=== PATIENT | female | born 1995 | race Two or more races ===

== ENCOUNTER 2017-09-16 11:49 | Emergency (ER) | payer OTHER ==
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
[2017-09-16 12:36] LABS: APPEARANCE,URINE CLOUDY; BILIRUBIN,URINE NEGATIVE (NEGATIVE); GLUCOSE, URINE NEGATIVE (NEGATIVE); KETONES,URINE NEGATIVE (NEGATIVE); LEUKOCYTE ESTERASE,URINE TRACE (NEGATIVE); NITRITE,URINE NEGATIVE (NEGATIVE); PROTEIN,URINE NEGATIVE (NEGATIVE); URINE SPECIFIC GRAVITY 1.015; UROBILINOGEN,URINE NEGATIVE mg/dL (<2.0)
[2017-09-16 14:07] VITALS: BP 122/84
== END 2017-09-16 13:47 | disposition home or self-care (01) ==
LOC: ER 11:49
DX: M54.5 Low back pain (principal); M25.561 Pain in right knee; M25.562 Pain in left knee; V87.7XXA Person injured in collision between other specified motor vehicles (traffic), initial encounter; Z3A.35 35 weeks gestation of pregnancy
CPT/HCPCS: 81001; 99283

== ENCOUNTER 2017-09-16 13:25 | Outpatient (CLI) | payer OTHER ==
--- NOTE | 2017-09-16 18:04 | Non Stress Test Report ---
Non Stress Test Datetime Report Generated by CPN: 09/16/2017 18:04 DEMOGRAPHIC EGA NST: 35.1 INDICATION Indication for Study: Other Indication for Study (NST) Other: Labor Check MONITORING Monitor Explained: Monitor Explained; Test Explained; Patient Verbalized Understanding Time on Monitor: 09/16/2017 13:39 Time off Monitor: 09/16/2017 17:35 NST Duration: 236 NST INTERVENTIONS NST Interventions: PO Hydration; Reposition Patient Physician Notified NST: Dr. Grey BABY A: [id number] BABY A Movement : Present Contraction Frequency : irregular FHR Baseline : 145 Accelerations : 15X15 Variability : Moderate 6-25bpm NST Review: Meets Criteria for Reactive NST NST Review and Verified By : Karen Nina RN NST Results: Reactive NST REPORT Report Trigger: Send Report
== END 2017-09-16 17:50 | disposition home or self-care (01) ==
LOC: LC 13:25
PROVIDERS: ATTEND Obstetrics & Gynecology
PROC: 4A1HXCZ Monitoring of Products of Conception, Cardiac Rate, External Approach (ICD-10-PCS; principal; 2017-09-16)
DX: O9A.213 Injury, poisoning and certain other consequences of external causes complicating pregnancy, third trimester (principal); Z3A.35 35 weeks gestation of pregnancy